=== PATIENT | male | born 1965 | race Caucasian/White ===

== ENCOUNTER 2020-12-15 09:38 | Observation (INO) | payer OTHER ==
[~2020-12-15] VITALS: Ht 182.9 cm; Wt 59.0 kg
[2020-12-15 11:55] LABS: HEMOGLOBIN 16.5 gm/dl (14.0-17.5); RED BLOOD COUNT 4.97 M/UL (4.20-5.50); WHITE BLOOD COUNT 10.6 K/UL (4.5-11.0)
[2020-12-15 12:10] LABS: BUN/CREATININE RATIO 9 (0-10)
[2020-12-16 04:06] LABS: BUN/CREATININE RATIO 8 (0-10)
[2020-12-16] MEDS ORDERED: IBUPROFEN600 MG PO (09:42)
[2020-12-16] MEDS ORDERED: BACTRIM DS TAB1 EACH PO (09:49)
== END 2020-12-16 13:02 | disposition home or self-care (01) ==
LOC: ER1 09:38 → CDU 13:27 → MED SURG 4 13:27
PROVIDERS: Physician Assistant Medical; ADMIT Surgery
DX: L02.31 Cutaneous abscess of buttock (principal); L72.9 Follicular cyst of the skin and subcutaneous tissue, unspecified; F17.210 Nicotine dependence, cigarettes, uncomplicated; F12.90 Cannabis use, unspecified, uncomplicated; Z88.6 Allergy status to analgesic agent; Z20.822 Contact with and (suspected) exposure to COVID-19
CPT/HCPCS: 36415; 80053; 83735; 84100; 85025; 87040; 87070; 87205; 99284; G0378; J0690; J2001; J2250; J2704; J3010; U0002

== ENCOUNTER → 2020-12-17 | Outpatient (CLI) | payer OTHER ==
[~2020-12-17] MED LIST: BACTRIM DS TAB1 EACH PO; IBUPROFEN600 MG PO
== END ==
LOC: OPSV 08:00
DX: L03.90 Cellulitis, unspecified (principal)
CPT/HCPCS: G0463

== ENCOUNTER → 2020-12-21 | Outpatient (CLI) | payer OTHER | LOC: OPSV 08:00 | DX: L03.90 Cellulitis, unspecified (principal) | CPT/HCPCS: G0463 ==

== ENCOUNTER 2021-05-12 22:55 | Emergency (ER) | payer OTHER ==
[2021-05-12 23:55] LABS: HEMOGLOBIN 15.6 gm/dl (14.0-17.5); RED BLOOD COUNT 4.62 M/UL (4.20-5.50); WHITE BLOOD COUNT 7.6 K/UL (4.5-11.0)
[2021-05-13 00:10] LABS: BUN/CREATININE RATIO 15 (0-10)
== END 2021-05-13 02:20 | disposition home or self-care (01) ==
LOC: ER1 22:55
PROVIDERS: Physician Assistant
DX: S90.812A Abrasion, left foot, initial encounter (principal); S90.512A Abrasion, left ankle, initial encounter; R51.9 Headache, unspecified; F17.210 Nicotine dependence, cigarettes, uncomplicated; Z90.49 Acquired absence of other specified parts of digestive tract; Z20.822 Contact with and (suspected) exposure to COVID-19; Z88.8 Allergy status to other drugs, medicaments and biological substances; X58.XXXA Exposure to other specified factors, initial encounter
CPT/HCPCS: 70450; 71045; 73610; 80053; 81001; 83690; 83735; 83880; 85025; 85652; 86140; 87086; 96374; 96375; 99285; G0480; J1200; J1885; J2405; J7030; U0002